=== PATIENT | male | born 1960 | race Caucasian/White ===

== ENCOUNTER → 2016-11-15 | Outpatient (CLI) | payer OTHER ==
[~2016-11-15] MED LIST: CIPR-255 PO; LPD600 PO
[2016-11-15 13:03] LABS: ALT/SGPT 48 U/L (12-78); AST/SGOT 22 U/L (15-37); BLOOD UREA NITROGEN 16 mg/dl (7-18); BUN/CREATININE RATIO 13.2 (10-20); CALCIUM 9.1 mg/dl (8.5-10.1); CARBON DIOXIDE 24 mmol/L (21-32); CHLORIDE 109 mmol/L (98-107); GLUCOSE 102 mg/dl (70-99); SODIUM 140 mmol/L (136-145)
[2016-11-15 13:09] LABS: ALB/GLOB RATIO 1.4 (0.9-2); ALKALINE PHOSPHATASE 99 U/L (45-117); CHOLESTEROL 128 mg/dl (0-200); CHOLESTEROL/HDL RATIO 4.6; HDL CHOLESTEROL 28 mg/dl; LDL CHOLESTEROL CALCULATED 33 mg/dl; TRIGLYCERIDES 333 mg/dl (0-150); VERY LOW DENSITY LIPOPROT CALC 67 mg/dl
== END | disposition home or self-care (01) ==
LOC: C.LABPBG 07:26
PROVIDERS: ATTEND Internal Medicine
DX: E78.1 Pure hyperglyceridemia (principal); N40.0 Benign prostatic hyperplasia without lower urinary tract symptoms

== ENCOUNTER → 2017-01-20 | Outpatient (CLI) | payer OTHER ==
--- NOTE | 2017-01-23 00:38 | POLYSOMNOGRAPH REPORT ---
CLINICAL DATA: A 57-year-old male with BMI of 30.1, referred by Dr. Jasmeet Paez for evaluation of loud snoring, intermittent gasping for air and insomnia. On the evening of 01/20/2017, a home sleep apnea test was performed using a Mobilygen type 3 monitor. RECORDING RESULTS: Total recording time was 10 hours. The patient's monitoring time and estimated sleep time was 9.2 hours. RESPIRATORY DATA: Moderate sleep apnea was documented. The JEREMY was 22.4. There were 91 obstructive and 2 mixed apneic episodes. There were 120 hypopneic episodes. The longest respiratory event was 37 seconds. OXIMETRY DATA: Nocturnal hypoxemia was seen. Oxygen lydia was 83%. Mean saturation was 92%. Time below 89% was 24 minutes. HEART RATE DATA: Heart rates ranged from 39-55 beats per minute. SNORING DATA: Snoring was recorded intermittently throughout the night. SALES COMMISSIONS ANALYST'S COMMENTS: Hypopneas and apneas were seen, especially when the patient was on his back. They appeared to be clustered in 4 separate periods, most likely during episodes of REM sleep. IMPRESSION: Moderate sleep apnea/hypopnea with an JEREMY of 23.4 with nocturnal hypoxemia. RECOMMENDATIONS: The patient may benefit from a repeat sleep study with CPAP, use of auto-CPAP or use of an oral appliance. Clinical correlation is needed. PARRISH
== END | disposition home or self-care (01) ==
LOC: C.NEUR 14:30
PROVIDERS: ATTEND Internal Medicine
DX: G47.00 Insomnia, unspecified (principal); R06.83 Snoring

== ENCOUNTER → 2017-02-17 | Outpatient (CLI) | payer OTHER | END | disposition home or self-care (01) | LOC: C.LABPBG 14:46 | PROVIDERS: ATTEND Urology | DX: N40.1 Benign prostatic hyperplasia with lower urinary tract symptoms (principal); R39.9 Unspecified symptoms and signs involving the genitourinary system ==

== ENCOUNTER → 2017-11-05 | Outpatient (CLI) | payer OTHER ==
[2017-11-05 13:39] LABS: ALBUMIN 3.8 gm/dl (3.4-5.0); ALKALINE PHOSPHATASE 101 U/L (45-117); ALT/SGPT 59 U/L (12-78); AST/SGOT 38 U/L (15-37); BLOOD UREA NITROGEN 18 mg/dl (7-18); CALCIUM 8.7 mg/dl (8.5-10.1); CARBON DIOXIDE 22 mmol/L (21-32); CHOLESTEROL 156 mg/dl (0-200); CREATININE 1.11 mg/dl (0.60-1.40); GLUCOSE 123 mg/dl (70-99); SODIUM 138 mmol/L (136-145); TOTAL PROTEIN 6.7 gm/dl (6.4-8.2)
== END | disposition home or self-care (01) ==
LOC: C.LABPBG 08:10
PROVIDERS: ATTEND Internal Medicine
DX: E78.1 Pure hyperglyceridemia (principal); E78.5 Hyperlipidemia, unspecified

== ENCOUNTER 2024-10-11 22:51 | Observation (INO) ==
--- NOTE | 2024-10-11 22:59 | Emergency Department Note ---
Impression & Plan Acute appendicitis, Acute right lower quadrant pain, Leukocytosis ED Provider Note NAME: GALLO PUCKETT AGE: 64 SEX: M : 1960 ARRIVES VIA: Walk-In INFORMANT: Patient ED PROVIDER(S): Laureano Rico MD CHIEF COMPLAINT: Right abdominal pain, fever PLAN: Disposition: Admit MEDICAL DECISION MAKING: The patient is a pleasant 64-year-old gentleman with a past medical history of prostate cancer, GERD, BPH with LUTS, hypertension, hyperlipidemia, CAD, history of diverticulitis who presents to the emergency department for evaluation of right flank and lower abdominal pain began yesterday with persistence of pain and development of fevers to 101 this afternoon. Patient reports he last took Tylenol at 2 PM. He denies any cough, congestion, chest pain or shortness of breath. He denies any blood in his urine or burning with urination. Patient reports he does have a history of appendectomy ~15 years ago. On evaluation the patient no acute stress, afebrile heart in 110s and blood pressure 190s/90s and vital signs otherwise stable. Appears clinically dry. Exhibits mild right flank and right lower abdominal tenderness without guarding or rebound. WBC 13.6 K with neutrophilia but no left shift, nonspecific. H/H and platelets within normal limits. Chemistry without metabolic acidosis. Electrolytes and LFTs unremarkable. Lipase is normal. UA without evidence of infection. CT of the abdomen pelvis demonstrates evidence of uncomplicated appendicitis. Additional description of caput cecum with moderate amount of inflammatory change which is localized to the attachment of the appendix where underlying mass is not entirely excluded. Treatment for appendicitis was initiated with IV Zosyn. Case was discussed with Cornell Pacheco, general surgery PA-Ambrocio with Dr. Roman, general surgery. Patient was evaluated by the bedside and was admitted to the surgical service. Triage Nursing notes reviewed and agree them. Prior/external medical records reviewed Vital Signs: reviewed Differential diagnosis: Renal colic, UTI, appendicitis, diverticulitis, mesenteric ischemia, aortic pathology, infections, inflammatory bowel disease, PUD, biliary pathology, as well as other pathologies. ER treatment provided: See below. Diagnostics interpreted by me: ECG: Normal sinus rhythm, 85 bpm, no ectopy, no overt ST elevation or depression, QTc 428, QRS 96. Cardiac Monitoring: An order for continuous cardiac monitoring was placed and demonstrated Normal sinus rhythm, 85 bpm, no ectopy. Laboratory studies: See below Imaging studies: See below Consultation(s): Cornell Pacheco, general surgery PA-C with Dr. Roman, general surgery HPI: Per MDM. ROS: See above HPI for pertinent positives & negatives. A total of 10 systems reviewed and were otherwise negative. VITALS:See Below PHYSICAL EXAMINATION: GENERAL: Awake, alert, in no distress HENT: Normocephalic, atraumatic. Oropharynx with dry mucous membranes and otherwise unremarkable. EYES: Normal conjunctiva. Sclera non-icteric. NECK: Supple. No nuchal rigidity. FROM. No JVD. RESPIRATORY: Clear to auscultation. CARDIAC: Tachycardic rate, normal rhythm. Extremities warm and well perfused. Pulses equal. ABDOMEN: Soft, non-distended. Mild right lower quadrant tenderness to palpation. No rebound or guarding. MUSCULOSKELETAL: Chest examination reveals no tenderness. The back is symmetrical on inspection without obvious abnormality. There is no CVA tenderness to palpation. No joint edema. LOWER EXTREMITIES: Calves are equal size bilaterally and non-tender. No edema. No discoloration. NEURO: Normal sensorium. No sensory or motor deficits noted. SKIN: No rash or jaundice noted. Laureano Rico MD Past Med/Surg History Problem List (Updated 10/12/24 @ 05:24 by Laureano Rico MD) Leukocytosis (Acute) Acute right lower quadrant pain (Acute) Acute appendicitis (Acute) Appendicitis Prostate cancer (~09/2023) Low volume [place] 3+3 with [place] 3+4 60% involvement. Hypertension previously on ARB; no meds at present GERD (gastroesophageal reflux disease) BPH with obstruction/lower urinary tract symptoms Major depressive disorder (Chronic) Hypertriglyceridemia (Chronic 05/11/11) Dyslipidemia (Chronic) SIMI (obstructive sleep apnea) (Chronic) Family history of prostate cancer Coronary artery calcification seen on CT scan Tubular adenoma Medical History Left knee DJD Diverticulitis Osteoarthritis Hx of diverticulitis of colon Hx of sleep apnea dx w/home test, no longer needs device due to weight loss Dyslipidemia on statin Suicide gesture hx-during his divorce, and son (2017). no current sx of depression or suidical ideations Mood disorder hx-during his divorce (2017); no current issues Depression hx-5 years ago; stable; no current medication tx Chest pain (02/08/14) hx-found to be coming from his neck (2013); RESOLVED Surgical History H/O prostatectomy History of left knee replacement 02/2023 Hx of reconstruction of anterior cruciate ligament tear L ACL 1999 Hx of appendectomy Hx of colonoscopy History of total right knee replacement History of total knee replacement R TKA, Dr. Gonzalez 2013 Family History Father Heart disease Prostate cancer Diabetes Myocardial infarction Mother Diabetes Son , age 16 MVA (motor vehicle accident) Other No pertinent family history Denies family history of Ovarian cancer Breast cancer Colorectal cancer Social History Smoking Status: Unknown if ever smoked Tobacco Type: Smokeless Tobacco (Dip or Chew) Age Started Using Tobacco: 17; Second Hand Exposure: No; Do You Dip or Chew Tobacco: No (quit years ago; advised); Hx Alcohol Use: No Hx Substance Use: No Preferred Language: Estonian Communication Ability: Effective Visual Impairment: No Limitations Hearing Ability: Normal Deck Cadet Required: No Beliefs That Will Affect Care: None marital status: Single Current Living Situation: Alone current occupational status: employed How many Children do You have: 1 Feels Safe at Home: Yes Diet: regular Diet Comment: regular caffeine: Yes (tea) during the past year weight has: remained stable Dental Care, Regularly: Yes Physical Activity Frequency: Daily Seatbelt Use: always Sunscreen Use: No Assistive Devices: Glasses Allergies Allergies Allergy/AdvReac Type Severity Reaction Status Date / Time trimethoprim [From Bactrim] Allergy Severe rash / N / Verified 07/02/24 07:01 V/ rapid heart beat Sulfa (Sulfonamide Allergy Intermediate RASH Verified 07/02/24 07:01 Antibiotics) sulfamethoxazole Allergy Unknown rash Verified 07/02/24 07:01 [From Bactrim] Home Meds Home Medications Medication Instructions Recorded Confirmed omega-3 fatty acids [Fish Oil] PO 04/23/23 07/02/24 Previous Rx's Medication Instructions Recorded telmisartan 20 mg tablet 40 mg (2 x 20 mg) PO DAILY #180 02/15/24 tabs betamethasone dipropionate 0.05 % 1 applic topical BID PRN skin 07/08/23 topical cream irritation #45 grams carvedilol 6.25 mg tablet 6.25 mg PO BID #180 tabs 11/19/23 Results & Data (ED) Vital Signs Vital Signs - 24 hr 10/11/24 22:51 10/12/24 00:12 10/12/24 00:26 Temperature 36.9 C Temperature Source Temporal Artery Scan Pulse Rate 111 H 82 Pulse Rate [Apical] 85 Respiratory Rate 19 16 Respiratory Effort / Characteristics Non-Labored Spontaneous Non-Labored Spontaneous Respiratory Depth Normal Normal Blood Pressure 197/96 H Blood Pressure [Left Arm] 156/101 H Blood Pressure Mean 129 Blood Pressure Mean [Left Arm] 119 Pulse Oximetry 96 95 Oxygen Delivery Method Room Air Room Air Sepsis Recent Fever Within 48 Hours No Sepsis New/Unexplained Change in Mental Status N/A Sepsis Action Taken by Nursing No Action Required 10/12/24 01:33 10/12/24 01:33 Temperature Temperature Source Pulse Rate 76 Pulse Rate [Apical] 78 Respiratory Rate 22 22 Respiratory Effort / Characteristics Respiratory Depth Blood Pressure 143/97 H Blood Pressure [Left Arm] 143/97 H Blood Pressure Mean 112 Blood Pressure Mean [Left Arm] 112 Pulse Oximetry 95 Oxygen Delivery Method Room Air Sepsis Recent Fever Within 48 Hours Sepsis New/Unexplained Change in Mental Status Sepsis Action Taken by Nursing Laboratory Data Attestation: I reviewed the patient's lab results. 10/11/24 23:30 10/11/24 23:30 Lab Results 10/11/24 10/11/24 10/12/24 Range/Units 23:30 23:37 00:05 WBC 13.62 H (4.8-10.8) K/ul RBC 5.74 (4.70-6.10) M/uL Hgb 15.2 (14.0-18.0) g/dl POC Hgb 15.0 (14.0-18.0) g/dl Hct 44.6 (42.0-52.0) % POC Hct 44 (42-52) % MCV 77.7 L (80.0-100.0) fL MCH 26.5 (25.0-34.0) pg MCHC 34.1 (32.0-36.0) g/dL RDW Std Deviation 37.7 (36.4-46.3) fL RDW Coeff of Joaquin 13.5 (11.5-14.5) % Plt Count 252 (130-400) K/uL MPV 10.1 (9.4-12.4) fL Immature Gran % (Auto) 0.4 % Neut % (Auto) 81.2 % Lymph % (Auto) 9.3 % [place] % (Auto) 7.9 % Eos % (Auto) 0.8 % Baso % (Auto) 0.4 % Neut # (Auto) 11.07 H (1.40-6.50) K/uL Lymph # (Auto) 1.26 (1.20-3.40) K/uL [place] # (Auto) 1.07 H (0.11-0.59) K/uL Eos # (Auto) 0.11 (0.00-0.50) K/uL Baso # (Auto) 0.06 (0.00-0.20) K/uL Immature Gran # (Auto) 0.05 (0.01-0.20) K/uL POC Sodium 137 (135-144) mmol/L Sodium 135 L (136-145) mmol/L POC Potassium 3.6 (3.3-5.0) mmol/L Potassium 3.6 (3.5-5.1) mmol/L POC Chloride 101 (101-112) mmol/L Chloride 102 (98-107) mmol/L Carbon Dioxide 25 (21-32) mmol/L POC Total CO2 24 (24-31) mmol/L Anion Gap 8 (3-11) POC Anion Gap 17.0 (16-25) mmol/L POC BUN 10 (7-18) mg/dl BUN 11 (6-23) mg/dl Creatinine 1.24 (0.6-1.4) mg/dl POC Creatinine 1.3 (0.6-1.3) mg/dl Est Cr Clr Drug Dosing 56.2 ml/min eGFR 64.52 BUN/Creatinine Ratio 8.9 L (10-20) Glucose 146 H (70-99(Fasting)) mg/dl POC Glucose (other) 149 H (70-99) mg/dl Calcium 8.9 (8.6-10.3) mg/dl POC Ioniz Calcium [place]nee 1.12 (1.12-1.32) mmol/l Total Bilirubin 0.9 (0.2-1.0) mg/dl AST 14 (13-39) U/L ALT 24 (7-52) U/L Alkaline Phosphatase 78 (34-104) U/L Total Protein 6.8 (6.0-8.3) gm/dl Albumin 4.3 (3.4-5.0) gm/dl Globulin 2.5 (2.5-4.0) gm/dl Albumin/Globulin Ratio 1.7 (0.9-2) Lipase 32 (11-82) U/L Procalcitonin 0.13 (0-0.5) ng/ml Urine Color Yellow Urine Appearance Clear (Clear) Urine pH 7.0 (4.5-7.5) Ur Specific [place] 1.027 (1.000-1.030) Urine Protein Negative (Negative) Urine Glucose (UA) Negative (Negative) Urine Ketones Negative (Negative) Urine Blood Negative (Negative) Urine Nitrite Negative (Negative) Urine Bilirubin Negative (Negative) Urine Urobilinogen Negative (Negative) Ur Leukocyte Esterase Negative (Negative) Urine Comment Administered Medications Sodium Chloride (Nss) 1,000 mls @ 125 mls/hr IV .Q8H MICH Stop: 10/15/24 01:44 Last Admin: 10/12/24 01:41 Dose: 125 mls/hr Documented By: RAÚL Morphine Sulfate (Morphine Sulfate 4 Mg/Ml 1 Ml Carp\Vial) 3 mg IV Q3H PRN PRN Reason: Severe Pain (Scale 7, 8, 9,10) Stop: 10/26/24 01:31 Last Admin: 10/12/24 01:49 Dose: 3 mg Documented By: RAÚL Discontinued Medications Sodium Chloride (Nss) 1,000 mls @ 999 mls/hr IV .Q1H1M ONE Stop: 10/11/24 23:56 Last Infusion: 10/12/24 00:36 Dose: Infused Documented By: Admin: 10/11/24 23:28 Dose: 999 mls/hr Documented By: RAÚL Acetaminophen (Ofirmev) 1,000 mg in 100 mls @ 400 mls/hr IV NOW STA Stop: 10/11/24 23:21 Last Infusion: 10/12/24 00:02 Dose: Infused Documented By: Admin: 10/11/24 23:31 Dose: 400 mls/hr Documented By: RAÚL Piperacillin Sod/Tazobactam Sod (Zosyn) 4.5 gm in 100 mls @ 200 mls/hr IV NOW ONE; Protocol Stop: 10/12/24 01:22 Last Infusion: 10/12/24 02:26 Dose: Infused Documented By: Admin: 10/12/24 01:09 Dose: 200 mls/hr Documented By: RAÚL Ioversol (Optiray 320 100ml) 100 ml IV ONCE ONE Stop: 10/11/24 23:49 Last Admin: 10/11/24 23:48 Dose: 93 ml Documented By: ROSALINDA Morphine Sulfate (Morphine Sulfate 10 Mg/Ml Carp/Vial) 6 mg IV NOW STA Stop: 10/11/24 23:08 Last Admin: 10/11/24 23:29 Dose: 6 mg Documented By: RAÚL Ondansetron HCl (Ondansetron Inj 2 Mg/Ml 2 Ml Vial) 4 mg IV NOW STA Stop: 10/11/24 23:08 Last Admin: 10/11/24 23:29 Dose: 4 mg Documented By: RAÚL Imaging Data Radiologist's Impression: Abdomen/Pelvis CT 10/11/24 23:07 CR Exam(s): CT ABDOMEN + PELVIS With Contrast IV Amt: 93 ML OPTIRAY 320 EXAM: CT Abdomen and Pelvis With Intravenous Contrast CLINICAL HISTORY: Reason for exam: Right flank/abd pain, fever. TECHNIQUE: Axial computed tomography images of the abdomen and pelvis with intravenous contrast. CTDI is 21.78 mGy and DLP is 1048.51 mGy-cm. Automated exposure control was utilized for the study. A dose lowering technique was utilized adhering to the principles of ALARA. CONTRAST: Patient received 93 ML OPTIRAY 320 of IV contrast COMPARISON: 03/04/2023 1.5 cm left hepatic lobe cyst FINDINGS: Lung bases: Unremarkable. No mass. No consolidation. ABDOMEN: Liver: Hepatic steatosis. Gallbladder and bile ducts: Unremarkable. No calcified stones. No ductal dilation. Pancreas: Unremarkable. No mass. No ductal dilation. Spleen: Unremarkable. No splenomegaly. Adrenals: Unremarkable. No mass. Kidneys and ureters: Simple 1.9 cm right renal cysts. No follow-up of these simple cysts is necessary. No hydronephrosis. Stomach and bowel: Diverticulosis without evidence of diverticulitis. No obstruction. PELVIS: Appendix: Inflammatory changes and small amount of fluid involving the distended appendix. The caput cecum demonstrates a moderate amount of inflammatory change which is localized to the attachment of the appendix. Bladder: Unremarkable. No mass. Reproductive: Unremarkable as visualized. ABDOMEN and PELVIS: Intraperitoneal space: Unremarkable. No free air. No significant fluid collection. Bones/joints: No acute fracture. No dislocation. Soft tissues: Unremarkable. Vasculature: Unremarkable. No abdominal aortic aneurysm. Lymph nodes: Unremarkable. No enlarged lymph nodes. IMPRESSION: Acute uncomplicated appendicitis. There is subtle prominence of the caput cecum near the attachment of the appendix. This may be secondary to associated inflammatory changes. Underlying mass however can not be entirely excluded. Communications: 10/12/24 00:52 Call Doctor Regarding Appendicitis, called Dr. Rico on 10/12 00:51 (-04:00) Electronically signed by: Tate Redding MD 10/12/24 00:51 AM Chest X-Ray 10/12/24 01:30 EXAM: XR chest 1V portable CLINICAL HISTORY: pre-op TECHNIQUE: An X-ray image of the chest is obtained in AP projection. COMPARISON: 03/04/2023. FINDINGS: Pulmonary Parenchyma: Accenutated right lower zonal bronchovascular markings could be non specific. No evidence of consolidation, collapse, or focal opacities. No pulmonary nodules are identified. No evidence of pleural effusion or pleural thickening. Heart and Mediastinum: Heart size and shape are normal. No mediastinal widening or masses. No hilar or mediastinal lymphadenopathy. Bony Thorax: Bony thorax appears intact without fractures or deformities. Soft Tissues: Soft tissues overlying the chest wall are unremarkable. IMPRESSION: 1. No acute cardiopulmonary abnormalities are identified. 2. Accenutated right lower zonal bronchovascular markings, likely non specific. 3. Advise clinical correlation. 4. No significant interval changes. Electronically signed by Artem Nettles 10-12-2024 02:45 AM Discharge Plan Visit Data Chief Complaint: Abdominal Pain Stated Complaint: ABD PAIN ED Provider: Laureano Rico Discharge Problem: Acute appendicitis, Acute right lower quadrant pain, Leukocytosis Patient Disposition: Admitted As Inpatient Condition: Serious Discharge Instructions Interventions: ED Discharge Assessment Last Done: 10/12/24 03:38 Discharge Problem: Acute appendicitis Qualifiers: Acute appendicitis type: unspecified acute appendicitis type Qualified Code(s): K35.80 - Unspecified acute appendicitis Leukocytosis Qualifiers: Leukocytosis type: unspecified Qualified Code(s): D72.829 - Elevated white blood cell count, unspecified
[2024-10-11] MEDS: SODIUM CHLORIDE 0.9% 1,000 ML IV ONE (23:28)
[2024-10-11] MEDS: ONDANSETRON INJ 2 MG/ML 2 ML VIAL IV STA (23:29)
[2024-10-11] MEDS: MoRPHine SULFATE 10 MG/ML CARP/VIAL IV STA (23:29)
[2024-10-11] MEDS: ACETAMINOPHEN 1,000 MG/100 ML VIAL IV STA (23:31)
[2024-10-11 23:40] LABS: Basophils # (auto) 0.06 K/uL (0.00-0.20); Basophils % (auto) 0.4 %; Eosinophils # (auto) 0.11 K/uL (0.00-0.50); Eosinophils % (auto) 0.8 %; Hematocrit (blood only) 44.6 % (42.0-52.0); Hemoglobin 15.2 g/dl (14.0-18.0); Immature Granulocytes # (auto) 0.05 K/uL (0.01-0.20); Immature Granulocytes % (auto) 0.4 %; Lymphocytes # (auto) 1.26 K/uL (1.20-3.40); Lymphocytes % (auto) 9.3 %; Mean Corpuscular Hemoglobin 26.5 pg (25.0-34.0); Mean Corpuscular Hgb Conc 34.1 g/dL (32.0-36.0); Mean Corpuscular Volume 77.7 fL (80.0-100.0); Mean Platelet Volume 10.1 fL (9.4-12.4); Monocytes # (auto) 1.07 K/uL (0.11-0.59); Monocytes % (auto) 7.9 %; Neutrophils # (auto) 11.07 K/uL (1.40-6.50); Neutrophils % (auto) 81.2 %; Platelet Count 252 K/uL (130-400); RDW Coefficient of Variation 13.5 % (11.5-14.5); RDW Standard Deviation 37.7 fL (36.4-46.3); Red Blood Count 5.74 M/uL (4.70-6.10); White Blood Count 13.62 K/ul (4.8-10.8)
[2024-10-11 23:48] LABS: iSTAT Creatinine 1.3 mg/dl (0.6-1.3); iSTAT Ionized Calcium 1.12 mmol/l (1.12-1.32); iSTAT Potassium 3.6 mmol/L (3.3-5.0)
[2024-10-11] MEDS: OPTIRAY 320 100ml IV ONE (23:48)
[2024-10-11 23:53] LABS: Bilirubin,Total 0.9 mg/dl (0.2-1.0); Calcium 8.9 mg/dl (8.6-10.3); Potassium 3.6 mmol/L (3.5-5.1)
[2024-10-11 23:59] LABS: Albumin Globulin Ratio 1.7 (0.9-2); BUN Creatinine Ratio 8.9 (10-20); Creatinine Clr Calc Pharmacy 56.2 ml/min; Globulin 2.5 gm/dl (2.5-4.0); Total Protein 6.8 gm/dl (6.0-8.3)
[2024-10-12 00:15] LABS: Appearance Urine Clear (Clear); Bilirubin Urine Negative (Negative); Blood Urine Negative (Negative); Color Urine Yellow; Glucose Urine UA Negative (Negative); Ketones Urine Negative (Negative); Leukocyte Esterase Urine Negative (Negative); Nitrite Urine Negative (Negative); Protein Urine Negative (Negative); Specific Gravity Urine 1.027 (1.000-1.030); Urobilinogen Urine Negative (Negative)
--- NOTE | 2024-10-12 00:52 | CT Scan Report ---
Exam(s): CT ABDOMEN + PELVIS With Contrast IV Amt: 93 ML OPTIRAY 320 EXAM: CT Abdomen and Pelvis With Intravenous Contrast CLINICAL HISTORY: Reason for exam: Right flank/abd pain, fever. TECHNIQUE: Axial computed tomography images of the abdomen and pelvis with intravenous contrast. CTDI is 21.78 mGy and DLP is 1048.51 mGy-cm. Automated exposure control was utilized for the study. A dose lowering technique was utilized adhering to the principles of ALARA. CONTRAST: Patient received 93 ML OPTIRAY 320 of IV contrast COMPARISON: 03/04/2023 1.5 cm left hepatic lobe cyst FINDINGS: Lung bases: Unremarkable. No mass. No consolidation. ABDOMEN: Liver: Hepatic steatosis. Gallbladder and bile ducts: Unremarkable. No calcified stones. No ductal dilation. Pancreas: Unremarkable. No mass. No ductal dilation. Spleen: Unremarkable. No splenomegaly. Adrenals: Unremarkable. No mass. Kidneys and ureters: Simple 1.9 cm right renal cysts. No follow-up of these simple cysts is necessary. No hydronephrosis. Stomach and bowel: Diverticulosis without evidence of diverticulitis. No obstruction. PELVIS: Appendix: Inflammatory changes and small amount of fluid involving the distended appendix. The caput cecum demonstrates a moderate amount of inflammatory change which is localized to the attachment of the appendix. Bladder: Unremarkable. No mass. Reproductive: Unremarkable as visualized. ABDOMEN and PELVIS: Intraperitoneal space: Unremarkable. No free air. No significant fluid collection. Bones/joints: No acute fracture. No dislocation. Soft tissues: Unremarkable. Vasculature: Unremarkable. No abdominal aortic aneurysm. Lymph nodes: Unremarkable. No enlarged lymph nodes. IMPRESSION: Acute uncomplicated appendicitis. There is subtle prominence of the caput cecum near the attachment of the appendix. This may be secondary to associated inflammatory changes. Underlying mass however can not be entirely excluded. Communications: 10/12/24 00:52 Call Doctor Regarding Appendicitis, called Dr. Rico on 10/12 00:51 (-04:00) Electronically signed by: Tate Redding MD 10/12/24 00:51 AM
[2024-10-12] MEDS: PIPERACILLIN/TAZOBACTAM 4.5 GM/100 ML BAG IV ONE (01:09)
--- NOTE | 2024-10-12 01:29 | History & Physical Report ---
Date of Service October 12, 2024 Assessment & Plan (1) Appendicitis: Plan: Due to the findings on patient's CT scan as well as his clinical presentation he will be admitted to the surgical service proceeding as follows: Analgesics will be provided Antiemetics to be provided Will implement n.p.o. status He will be hydrated IV fluids In the emergency department the treating physician has initiated Zosyn and these antibiotics will continue Will tentatively plan on having the patient undergo a laparoscopy with possible appendicitis by Dr. Rito Roman of [facility] physician with general surgery. Although the patient does report a history of appendicitis it does appear as though he has findings on his CT scan consistent with appendicitis (the treating emergency room physician has discussed with the radiologist and they do feel that the patient again does have an appendicitis; in addition after extensive questioning with the patient he is not 100% sure that he has had an appendectomy; if he has had an appendectomy there is a possibility that perhaps patient may have stump appendicitis which can be ascertained at the time of surgery) At the time of my encounter with the patient he was nontoxic-appearinghe is normotensive without tachycardia. Given the documented fever since arrival to the emergency department. He does exhibit a slight leukocytosis but does not have acute kidney injury. He does not have signs of peritonitis on physical exam Will check coagulation studies We will check a preoperative EKG SCDs will be used for DVT prevention, no chemical means due to planned surgery Additional recommendations to be forthcoming based on his clinical course as it unfolds He will be a level 1 full code as above. reviewed ct with our radiologist who agree. discussed risks/options ( bleeding/infection/injury to another organ/blood clots etc...). questions answered. pt agreeable. will proceed today with lela osorio History of Present Illness Chief Complaint: Abdominal pain Primary Care Provider: MASON Johnson This is a 64-year-old male with presented to the emergency department secondary to abdominal pain. Patient says that the pain began approximately 3 days ago and is confined primarily to the right lower quadrant without radiation or modifying factors. He says he has felt nauseous on occasion but has not had any emesis. He believes he has had temperatures as high as 99.1. He denies any weight loss. Patient says that he has had a colonoscopy in 2020 and does not believe there are any significant problems with this procedure. He has had prior abdominal surgery in the form of a prostatectomy in January [address] Nithin Stanford of [facility] urology. Patient also believes he may have had his appendix taken out many years ago but upon further questioning was not sure. Since arrival to the hospital he has had labs and imaging which I independent reviewed. CBC revealed white blood cell count was elevated at 13.6. Hemoglobin and hematocrit were both within normal range. Platelet count was noted to be normal. Chemistry profile showed sodium was 135 with a potassium that was normal. His BUN and creatinine were both normal. He did not have any elevation of his LFTs or lipase. Urinalysis was not indicative of infection. Patient did have a CT scan which showed inflammatory changes and small amount of fluid involving a distended appendix. There is also some inflammatory change in the area around the cecum localized to the area where the appendix was attached. There is no evidence of perforation. Near the area of the cecum there was some prominence near the attachment of the appendix and the interpreting radiologist could not exclude an underlying mass. An EKG showed normal sinus rhythm without changes indicative of acute ischemia. At the time of my interview the patient was resting comfortably in bed he was in no distress. Allergies Allergy/AdvReac Type Severity Reaction Status Date / Time trimethoprim [From Bactrim] Allergy Severe rash / N / Verified 07/02/24 07:01 V/ rapid heart beat Sulfa (Sulfonamide Allergy Intermediate RASH Verified 07/02/24 07:01 Antibiotics) sulfamethoxazole Allergy Unknown rash Verified 07/02/24 07:01 [From Bactrim] Home Medications Medication Instructions Recorded Confirmed Type omega-3 fatty acids [Fish Oil] PO 04/23/23 07/02/24 History telmisartan 20 mg tablet 40 mg (2 x 20 mg) PO DAILY #180 06/05/23 10/12/24 Rx tabs betamethasone dipropionate 0.05 % 1 applic topical BID PRN skin 07/08/23 5 Rx topical cream irritation #45 grams carvedilol 6.25 mg tablet 6.25 mg PO BID #180 tabs 11/19/23 10/12/24 Rx Past Med/Surg History Problem List (Updated 10/12/24 @ 05:24 by Laureano Rico MD) Leukocytosis (Acute) Acute right lower quadrant pain (Acute) Acute appendicitis (Acute) Appendicitis Prostate cancer (~09/2023) Low volume Alli 3+3 with [place] 3+4 60% involvement. Hypertension previously on ARB; no meds at present GERD (gastroesophageal reflux disease) BPH with obstruction/lower urinary tract symptoms Major depressive disorder (Chronic) Hypertriglyceridemia (Chronic 05/11/11) Dyslipidemia (Chronic) SIMI (obstructive sleep apnea) (Chronic) Family history of prostate cancer Coronary artery calcification seen on CT scan Tubular adenoma Medical History Left knee DJD Diverticulitis Osteoarthritis Hx of diverticulitis of colon Hx of sleep apnea dx w/home test, no longer needs device due to weight loss Dyslipidemia on statin Suicide gesture hx-during his divorce, and son (2017). no current sx of depression or suidical ideations Mood disorder hx-during his divorce (2017); no current issues Depression hx-5 years ago; stable; no current medication tx Chest pain (02/08/14) hx-found to be coming from his neck (2013); RESOLVED Surgical History H/O prostatectomy History of left knee replacement 02/2023 Hx of reconstruction of anterior cruciate ligament tear L ACL 1999 Hx of appendectomy Hx of colonoscopy History of total right knee replacement History of total knee replacement R TKA, Dr. Gonzalez 2013 Family History Father Heart disease Prostate cancer Diabetes Myocardial infarction Mother Diabetes Son , age 16 MVA (motor vehicle accident) Other No pertinent family history Denies family history of Ovarian cancer Breast cancer Colorectal cancer Social History Smoking Status: Current some day smoker Tobacco Type: Smokeless Tobacco (Dip or Chew) Age Started Using Tobacco: 17; Cigarettes Per Day: 0, only uses chew; Second Hand Exposure: No; Do You Dip or Chew Tobacco: Yes ("once in a while"); Tobacco Cessation Education Requested by Patient: No Hx Alcohol Use: No Hx Substance Use: No Preferred Language: Tajik Communication Ability: Effective Visual Impairment: No Limitations Hearing Ability: Normal Cutter Operator Helper Required: No Beliefs That Will Affect Care: None marital status: Single Current Living Situation: Alone current occupational status: employed How many Children do You have: 1 Feels Safe at Home: Yes Diet: regular Diet Comment: regular caffeine: Yes (tea) during the past year weight has: remained stable Dental Care, Regularly: Yes Physical Activity Frequency: Daily Seatbelt Use: always Sunscreen Use: No Assistive Devices: None Review of Systems Review of Systems: All systems reviewed & are unremarkable except as noted in HPI & below Physical Exam Constitutional: WD/WN, vitals as above Eyes: + anicteric sclerae; no conjunctival abn ormality ENMT: Ears: no hearing impairment and no external ear abnormality Mouth: no oropharynx abnormality Neck: trachea midline Respiratory: normal respiratory effort; no respiratory distress and no labored breathing Cardiovascular: Rate/Rhythm: regular rate and regular rhythm Gastrointestinal (Abdomen): Patient's abdomen is slightly rotund but soft. It is nonrigid. There is no rebound tenderness, guarding, or signs of peritonitis. Patient did have point tenderness with palpation in the right lower quadrant and McBurney's point. Upon visual inspection of the abdomen the patient did have 3 incisions which appear to be laparoscopic incisions consistent with a recent robotic prostatectomy. I did not appreciate any incisions in the right lower quadrant McBurney point consistent with history of appendectomy. Musculoskeletal: No calf tenderness Skin: no jaundice Neurologic: moves all extremities Psychiatric: A+Ox3, euthymic affect Results & Data Results & Data Vital Signs (Past 12 Hours) Vital Signs Temp Pulse Pulse Resp BP BP Pulse Ox 10/12/24 00:26 82 10/12/24 00:12 85 16 156/101 H 95 10/11/24 22:51 36.9 C 111 H 19 197/96 H 96 O2 Del Method 10/12/24 00:26 10/12/24 00:12 Room Air 10/11/24 22:51 Room Air PG Care Time/CCT Total # of Minutes Spent Total Time Spent with Patient: Total time spent is greater than 50% in coordination of care (as documented) at patient's floor/unit and/or counseling patient: Coding Level of Care Code 03515 INT INP/OBS CARE 3/75MIN Diagnoses Appendicitis K37
[2024-10-12] MEDS ORDERED: ONDANSETRON INJ 2 MG/ML 2 ML VIAL IV PRN ×2 (01:32→11:39)
[2024-10-12] MEDS ORDERED: ACETAMINOPHEN 1,000 MG/100 ML VIAL IV PRN (01:32)
[2024-10-12] MEDS: SODIUM CHLORIDE 0.9% 1,000 ML IV SCH ×2 (01:41→16:24)
[2024-10-12] MEDS: MoRPHine SULFATE 4 MG/ML 1 ML CARP\\VIAL IV PRN ×2 (01:49→17:14)
[2024-10-12 01:58] LABS: Partial Thromboplastin Ratio 1.2; Partial Thromboplastin Time 32 Seconds (21-31)
--- NOTE | 2024-10-12 02:47 | XRay Report ---
EXAM: XR chest 1V portable CLINICAL HISTORY: pre-op TECHNIQUE: An X-ray image of the chest is obtained in AP projection. COMPARISON: 03/04/2023. FINDINGS: Pulmonary Parenchyma: Accenutated right lower zonal bronchovascular markings could be non specific. No evidence of consolidation, collapse, or focal opacities. No pulmonary nodules are identified. No evidence of pleural effusion or pleural thickening. Heart and Mediastinum: Heart size and shape are normal. No mediastinal widening or masses. No hilar or mediastinal lymphadenopathy. Bony Thorax: Bony thorax appears intact without fractures or deformities. Soft Tissues: Soft tissues overlying the chest wall are unremarkable. IMPRESSION: 1. No acute cardiopulmonary abnormalities are identified. 2. Accenutated right lower zonal bronchovascular markings, likely non specific. 3. Advise clinical correlation. 4. No significant interval changes. Electronically signed by Artem Nettles 10-12-2024 02:45 AM
[2024-10-12] MEDS: PIPERACILLIN/TAZOBACTAM 4.5 GM/100 ML BAG IV SCH (05:20)
--- NOTE | 2024-10-12 11:38 | Anesthesiology Consultation ---
Date of Service October 12, 2024 Assessment & Plan Chart Review Chart Review: Acceptable Risk for Surgery, Patient NOT seen in Pre Admission Testing and teller supervisor initiated Consults Requested none History Surgery Operation Date: 10/12/24 08:20 Proposed Procedures p Laparoscopic Appendectomy - Rohith Roman DO Height/Weight Height: 5 ft 4 in Weight: 75.5 kg Allergies Allergy/AdvReac Type Severity Reaction Status Date / Time trimethoprim [From Bactrim] Allergy Severe rash / N / Verified 07/02/24 07:01 V/ rapid heart beat Sulfa (Sulfonamide Allergy Intermediate RASH Verified 07/02/24 07:01 Antibiotics) sulfamethoxazole Allergy Unknown rash Verified 07/02/24 07:01 [From Bactrim] Medications Home Medications Medication Instructions Recorded Confirmed Last Taken omega-3 fatty acids [Fish Oil] PO 04/23/23 07/02/24 Unknown telmisartan 20 mg tablet 40 mg (2 x 20 mg) PO DAILY #180 06/05/23 10/12/24 10/10/24 tabs betamethasone dipropionate 0.05 % 1 applic topical BID PRN skin 07/08/23 10/12/24 Unknown topical cream irritation #45 grams carvedilol 6.25 mg tablet 6.25 mg PO BID #180 tabs 11/19/23 10/12/24 10/10/24 Active Medications Generic Name Dose Route Start Last Admin Trade Name Freq PRN Reason Stop Dose Admin Sodium Chloride 1,000 mls @ 125 mls/hr 10/12/24 01:45 10/12/24 11:27 Nss IV 10/15/24 01:44 0 mls/hr .Q8H [facility] Infusion Piperacillin Sod/Tazobactam Sod 4.5 gm in 100 mls @ 25 mls/hr 10/12/24 06:00 10/12/24 09:33 Zosyn IV 10/22/24 05:59 Infused Q8H [facility] Infusion Protocol Morphine Sulfate 3 mg 10/12/24 01:32 10/12/24 09:33 Morphine Sulfate 4 Mg/Ml 1 Ml Carp\\Vial IV 10/26/24 01:31 3 mg Q3H PRN Administration Severe Pain (Scale 7, 8, 9,10) Past Medical History Medical History Left knee DJD Diverticulitis Osteoarthritis Hx of diverticulitis of colon Hx of sleep apnea dx w/home test, no longer needs device due to weight loss Dyslipidemia on statin Suicide gesture hx-during his divorce, and son (2017). no current sx of depression or suidical ideations Mood disorder hx-during his divorce (2017); no current issues Depression hx-5 years ago; stable; no current medication tx Chest pain (02/08/14) hx-found to be coming from his neck (2013); RESOLVED Past Family History Family History Father Heart disease Prostate cancer Diabetes Myocardial infarction Mother Diabetes Son , age 16 MVA (motor vehicle accident) Other No pertinent family history Denies family history of Ovarian cancer Breast cancer Colorectal cancer Past Surgical History Surgical History H/O prostatectomy History of left knee replacement 02/2023 Hx of reconstruction of anterior cruciate ligament tear L ACL 1999 Hx of appendectomy Hx of colonoscopy History of total right knee replacement History of total knee replacement R TKA, Dr. Gonzalez 2013 Social History Smoking Status: Current some day smoker tobacco type: smokeless tobacco Smoking cigarettes per day: 0, only uses chew Do You Dip or Chew Tobacco: Yes ("once in a while") Hx Alcohol Use: No Hx Substance Use: No substance use type: does not use Physical Exam Vital Signs Last Vital Signs Temp 36.7 C 10/12/24 06:55 Pulse 78 10/12/24 06:55 Resp 16 10/12/24 06:55 BP 158/85 H 10/12/24 06:55 Pulse Ox 94 10/12/24 06:55 O2 Del Method Room Air 10/12/24 06:55 Testing Laboratory Results 10/11/24 23:30 10/11/24 23:30 PT 11.0 Seconds (9.0-12.0) 10/12/24 01:39 INR 1.0 (0.9-1.1) 10/12/24 01:39 APTT 32 Seconds (21-31) H 10/12/24 01:39 Urine Color Yellow 10/12/24 00:05 Urine Appearance Clear (Clear) 10/12/24 00:05 Urine pH 7.0 (4.5-7.5) 10/12/24 00:05 Ur Specific [place] 1.027 (1.000-1.030) 10/12/24 00:05 Urine Protein Negative (Negative) 10/12/24 00:05 Urine Glucose (UA) Negative (Negative) 10/12/24 00:05 Urine Ketones Negative (Negative) 10/12/24 00:05 Urine Nitrite Negative (Negative) 10/12/24 00:05 Ur Leukocyte Esterase Negative (Negative) 10/12/24 00:05 10/11/24 23:37 POC Glucose (other) 149 H Electrocardiogram Date: 10/11/24 Findings: + NSR @ (27)
[2024-10-12] MEDS ORDERED: ATROPINE SULFATE 0.1 MG/ML 10ML SYR IV PRN (11:39)
[2024-10-12] MEDS ORDERED: ePHEDrine sulfate 50 MG/ML AMP IV PRN (11:39)
[2024-10-12] MEDS ORDERED: PROPOFOL IV EMULSION 10 MG/ML 20 ML VIAL IV ONE ×2 (11:45→12:59)
[2024-10-12] MEDS ORDERED: MIDAZOLAM HCL 1 MG/ML 2ML VIAL ONE (11:45)
[2024-10-12] MEDS ORDERED: ROCURONIUM BROMIDE 10 MG/ML 5 ML VIAL IV ONE (11:45)
[2024-10-12] MEDS ORDERED: LIDOCAINE 2% 2 ML VIAL/AMP(20MG/ML) INFIL ONE (11:45)
[2024-10-12] MEDS ORDERED: fentaNYL citrate PF 100 MCG/2 ML VIAL ONE ×2 (11:46→13:46)
[2024-10-12] MEDS ORDERED: PHENYLEPHRINE 100MCG/ML 5ML SYR ONE (12:51)
[2024-10-12] MEDS ORDERED: ESMOLOL HCL INJ 10 MG/ML 10ML VIAL IV ONE (13:03)
[2024-10-12] MEDS ORDERED: SUGAMMADEX SODIUM 200 MG/2 ML VIAL IV ONE (13:08)
[2024-10-12] MEDS ORDERED: LABETALOL HCL IV 5 MG/ML 20ML IV ONE (13:16)
[2024-10-12] MEDS ORDERED: ONDANSETRON INJ 2 MG/ML 2 ML VIAL ONE (13:38)
[2024-10-12] MEDS: BUPIVACAINE/EPINEPHRINE 0.5% MPF 1:200,000 30 ML VIAL ONE (14:05)
[2024-10-12] MEDS: fentaNYL citrate PF 100 MCG/2 ML VIAL IV PRN (14:50)
--- NOTE | 2024-10-12 14:55 | Anesthesiology Progress Note ---
Date of Service October 12, 2024 Anesthesia Post Procedure Vital Signs Vital Signs: Temp Pulse Pulse Pulse Resp BP BP 10/12/24 14:21 37.3 C 85 20 113/69 10/12/24 11:46 37 C 86 18 150/95 H 10/12/24 06:55 36.7 C 78 16 158/85 H 10/12/24 04:00 36.8 C 82 16 145/73 H 10/12/24 03:38 10/12/24 03:35 36.8 C 71 18 143/93 H 10/12/24 02:06 77 22 151/101 H 10/12/24 01:33 76 22 143/97 H 10/12/24 01:33 78 22 143/97 H 10/12/24 00:26 82 10/12/24 00:12 85 16 156/101 H 10/11/24 22:51 36.9 C 111 H 19 197/96 H Pulse Ox O2 Del Method O2 Flow Rate 10/12/24 14:21 97 Oxymask 10 10/12/24 11:46 94 Room Air 10/12/24 06:55 94 Room Air 10/12/24 04:00 96 Room Air 10/12/24 03:38 Room Air 10/12/24 03:35 97 Room Air 10/12/24 02:06 95 Room Air 10/12/24 01:33 10/12/24 01:33 95 Room Air 10/12/24 00:26 10/12/24 00:12 95 Room Air 10/11/24 22:51 96 Room Air Pain Intensity Right Lower Abdomen: Pain Intensity: 2 Transfer of Care Handoff Completed per policy Notes Mental Status: alert / awake / arousable Patient Amnestic to Procedure: Yes Nausea / Vomiting: adequately controlled Pain: adequately controlled Airway Patency, RR, SpO2: stable & adequate BP & HR: stable & adequate Hydration State: stable & adequate Anesthetic Complications: no major complications apparent and Pt Satisfied with anesthetic care
--- NOTE | 2024-10-12 15:04 | Post Operative Brief Note ---
PG Immediate Post Op with CF Date of Surgery October 12, 2024 Pre & Post Diagnosis Operation Date: 10/12/24 08:20 Pre-Op Diagnosis: Appendicitis Post-Op Diagnosis: Appendicitis I identified the patient and participated in the time-out.: Yes Procedure Operation Date: 10/12/24 08:20 Actual Procedures p Laparoscopic Appendectomy, Extensive Enterolysis(Not Applicable) - Rohith Roman DO Surgeon Rohith Roman DO Disabilities Caregiver mindi Mauricio Estimated Blood Loss 10 Findings Consistent with Post-Op Diagnosis Specimens Specimen Description: A. Appendix Drains Merino Catheter (inserted without complications by Reba Shaw - emptied at end of procedure 125ml)
[2024-10-12] MEDS ORDERED: oxyCODONE HCL IR 5 MG TAB (IMMEDIATE RELEASE) PO PRN ×2 (15:53)
[2024-10-12] MEDS: LACTATED RINGER'S 1,000 ML IV SCH (16:17)
[2024-10-12] MEDS: carvediloL 6.25 MG TAB PO SCH (16:22)
[2024-10-12] MEDS: ACETAMINOPHEN 1,000 MG/100 ML VIAL IV SCH (16:23)
[2024-10-12] MEDS: MoRPHine SULFATE 2 MG/ML CARP IV PRN (19:41)
[2024-10-13 03:09] VITALS: PULSE 75; TEMP 97.7; O2SAT 94
[2024-10-13 06:36] LABS: Basophils # (auto) 0.07 K/uL (0.00-0.20); Basophils % (auto) 0.5 %; Eosinophils # (auto) 0.26 K/uL (0.00-0.50); Hematocrit (blood only) 37.9 % (42.0-52.0); Hemoglobin 12.7 g/dl (14.0-18.0); Immature Granulocytes # (auto) 0.08 K/uL (0.01-0.20); Immature Granulocytes % (auto) 0.6 %; Lymphocytes # (auto) 1.37 K/uL (1.20-3.40); Lymphocytes % (auto) 10.6 %; Mean Corpuscular Hemoglobin 26.9 pg (25.0-34.0); Mean Corpuscular Hgb Conc 33.5 g/dL (32.0-36.0); Mean Corpuscular Volume 80.3 fL (80.0-100.0); Monocytes # (auto) 1.07 K/uL (0.11-0.59); Monocytes % (auto) 8.3 %; Neutrophils # (auto) 10.07 K/uL (1.40-6.50); Platelet Count 198 K/uL (130-400); RDW Coefficient of Variation 13.7 % (11.5-14.5); RDW Standard Deviation 39.8 fL (36.4-46.3); Red Blood Count 4.72 M/uL (4.70-6.10); White Blood Count 12.92 K/ul (4.8-10.8)
[2024-10-13 06:55] VITALS: RESP 16
[2024-10-13 07:03] LABS: BUN Creatinine Ratio 9.9 (10-20); Calcium 8.1 mg/dl (8.6-10.3); Creatinine Clr Calc Pharmacy 52.3 ml/min; Potassium 3.7 mmol/L (3.5-5.1)
--- NOTE | 2024-10-13 08:53 | Surgery Progress Note ---
Date of Service October 13, 2024 Assessment & Plan (1) Acute appendicitis: Plan: POD#1 laparoscopic appendectomy WBC 12.9, hbg 12 pain as expected post op and managable tolerating a diet pt wishes to go home, we will plan on dispo to home today complete a 7 day course of po abx and f/u with dr. king in the office in 1-2 weeks As above. Doing well from my standpoint. He would prefer to go home which is okay with me. Follow-up in 1 week. Instructions given Admission and Anticipated Discharge Date Admission Date: October 12, 2024 Subjective Patient feeling okay. Had some intermittent pain that felt better after going to the bathroom. Tolerating a diet, no nausea/vomiting. Physical Exam Physical Exam: awake/alert Gastrointestinal (Abdomen): Inspection/Auscultation: + abdominal surgical incision (incisions with dermabond) Percussion/Palpation: + abdomen tender (expected brittny incisional discomfort to palpation) Results & Data Vital Signs (Past 12 Hours) Vital Signs Temp Pulse Resp BP Pulse Ox O2 Del Method 10/13/24 06:54 97.7 F 75 16 101/57 L 94 Room Air 10/13/24 03:04 97.7 F 75 18 115/66 94 Room Air 10/12/24 23:03 98.1 F 93 H 18 124/74 95 Room Air PG Care Time/CCT Total # of Minutes Spent Total Time Spent with Patient: Total time spent is greater than 50% in coordination of care (as documented) at patient's floor/unit and/or counseling patient: Coding Level of Care Code 54752 Post Operative Follow-Up Diagnoses Acute appendicitis K35.80 Acute appendicitis type: unspecified acute appendicitis type (1) Acute appendicitis Acute appendicitis type: unspecified acute appendicitis type Qualified Code(s): K35.80 - Unspecified acute appendicitis
[2024-10-13 09:39] VITALS: BP 113/66
--- NOTE | 2024-10-13 16:00 | Electrocardiogram Report ---
Test Reason : Blood Pressure : */* mmHG Vent. Rate : 85 BPM Atrial Rate : 85 BPM P-R Int : 152 ms QRS Dur : 96 ms QT Int : 360 ms P-R-T Axes : 14 -19 25 degrees QTcB Int : 428 ms Normal sinus rhythm Normal ECG When compared with ECG of 04-Mar-2023 10:24, No significant change was found Confirmed by Aubrey Rosas ([id number]) on 10/13/2024 4:00:35 PM Referred By: REFERRED SELF Confirmed By: Aubrey Rosas
--- NOTE | 2024-10-14 17:59 | Operative Report ---
PG Post Operative Report Pre & Post Diagnosis Operation Date: 10/12/24 08:20 Pre-Op Diagnosis: Appendicitis Post-Op Diagnosis: Appendicitis ( recurrent/"stump" appendicitis) I identified the patient and participated in the time-out.: Yes Procedure Operation Date: 10/12/24 08:20 Actual Procedures p Laparoscopic Appendectomy, Extensive Enterolysis(Not Applicable) - Rohith Roman DO Surgeon Rohith Roman DO All Round Logger mindi Mauricio Estimated Blood Loss 10 Findings Consistent with Post-Op Diagnosis Specimens appendix Description of Procedure After informed consent was obtained the patient was taken to the operating room and placed in supine position. After successful intubation the abdomen shaved and sterilely prepped and draped in usual fashion. I began on the supraumbilical incision. This was carried down through the soft tissues and cautery. Anterior fascia was opened using cautery and two #0 Vicryl stay sutures were placed. Peritoneum was elevated with hemostats and incised under direct vision using a Metzenbaum scissor. A finger sweep was performed to take down any underlying adhesions. A 12 mm Castle trocar was placed and the abdomen was insufflated to 18 mmHg. Laparoscope was inserted and the abdomen examined 360 degrees. There was a fair amount of adhesions in the right lower quadrant primarily. I was able to place a suprapubic 5 mm port and a left lower quadrant 12 mm port under direct vision. I began by taking down adhesions from the right colon and cecum to the anterior abdominal wall. I did this with some blunt dissection as well as sharp scissor lysis and small amounts of harmonic scalpel. I was able to identify the terminal ileum and cecum. Initially I had difficulty and did not identify a true appendix. I continued to mobilize the right colon and cecum along the white line of Toldt and after taking down all of the attachments I was able to roll the right colon and cecum medially. I was able to find a firm area of inflammation and when I mobilized this it did release some white purulent fluid. I was then able to continue using primarily blunt dissection and identify a residual appendix. Because of his prior history and the inflammation it was unclear if this was an original appendix or a simple stump appendicitis. There was probably at least 2 to 3 cm of appendix. There was already a small perforation in the sidewall with what appeared to be a small amount of stool or with what appeared to be a small amount of stool or appendicolith. I was able to make a small window underneath the appendix and use a AURELIO jackson cartridge stapler to transect it from the cecum. I used the harmonic scalpel to take down what small amount of residual mesentery was there. It was placed in an Endo Catch bag and removed from the camera port site. I thoroughly irrigated the right lower quadrant as well as pelvis. There was adequate hemostasis. No other abnormalities were identified. The trocars were all removed and the abdomen desufflated. The fascia of the camera port was closed using 0 Vicryl in [id number] fashion and the left lower quadrant fascia was closed using 0 Vicryl in simple interrupted fashion. All the incisions were irrigated and closed with 4-0 Monocryl. Marcaine with epinephrine was injected around it for postoperative analgesia and skin glue used as a dressing. The patient was awakened extubated and transferred to recovery in stable condition. My physician behavioral health assistant was present through the entire case was instrumental in accessing the abdomen, running the camera, assisting with wound closure and dressing placement. I attest to the content of the Intraoperative Record and any orders documented therein. Any exceptions are noted below.
== END 2024-10-13 16:00 | disposition home or self-care (01) | DRG 399 ==
LOC: ED 22:51 → INTOOBSV 10-12 01:35 → 3E 10-12 01:35